=== PATIENT | female | born 1975 | race African-American/Black ===

== ENCOUNTER 2017-11-24 17:43 | Emergency (ER) | payer OTHER ==
[~2017-11-24] VITALS: Ht 172.7 cm; Wt 63.5 kg
[2017-11-24 18:05] VITALS: BP 136/98
[2017-11-24] MEDS ORDERED: ACETAMINOPHEN ES 500 MG TABLET ONE (18:22)
[2017-11-24] MEDS ORDERED: ACETAMINOPHEN 325 MG TABLET PO ONE (18:30)
[2017-11-24] MEDS ORDERED: LIDOCAINE 1% INJ 50 ML MDV IJ ONE (19:59)
== END 2017-11-24 20:08 | disposition home or self-care (01) ==
LOC: ER 17:54
DX: S62.521A Displaced fracture of distal phalanx of right thumb, initial encounter for closed fracture (principal); S60.011A Contusion of right thumb without damage to nail, initial encounter; W23.0XXA Caught, crushed, jammed, or pinched between moving objects, initial encounter; Y93.89 Activity, other specified; Y92.89 Other specified places as the place of occurrence of the external cause; Y99.8 Other external cause status
CPT/HCPCS: 11740; 73140; 99283; A4606; J3490; Z7610